=== PATIENT | male | born 2000 | race Two or more races ===

== ENCOUNTER → 2025-02-06 | Outpatient (CLI) | payer MEDICAID, SELFPAY ==
--- NOTE | 2025-02-06 09:30 | XR_ITS ---
Examination: Upper GI series with KUB Esophagram standard Fluoroscopy 26 spot fluoroscopic films of the esophagus stomach and duodenum Date and time: February 06, 2025 1031 hours INDICATIONS: Preop bariatric surgery. 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 Duodenal bulb expands symmetrically, duodenal sweep and jejunal loops visualized are unremarkable IMPRESSION: Negative study
== END | disposition home or self-care (01) ==
PROVIDERS: Referring Provider Specialist; Visit Provider Specialist
DX: K21.9 Gastro-esophageal reflux disease without esophagitis (principal)
CPT/HCPCS: 74240; A4649